=== PATIENT | male | born 2000 | race Hispanic/Latino ===

== ENCOUNTER 2022-07-06 09:22 | Emergency (ER) | payer SELFPAY | END 2022-07-06 10:27 | disposition home or self-care (01) | LOC: ERS 09:22 | DX: S13.4XXA Sprain of ligaments of cervical spine, initial encounter (principal); F17.200 Nicotine dependence, unspecified, uncomplicated; X58.XXXA Exposure to other specified factors, initial encounter | CPT/HCPCS: 99283 ==